=== PATIENT | male | born 1940 | race Caucasian/White ===

== ENCOUNTER 2018-08-22 10:35 | Outpatient (CLI) | payer MEDICARE, BC ==
[~2018-08-22 10:35] MED LIST: Iopamidol 370 76% 100 ML VIAL ONE
--- NOTE | 2018-08-22 15:11 | CT ---
PRE AND POST CONTRAST ENHANCED CT IMAGES ABDOMEN AND PELVIS: HISTORY: Gross hematuria 3 weeks. FINDINGS: Pre- and postcontrast-enhanced CT images of the abdomen and pelvis demonstrate no evidence of free in traperitoneal air. No evidence of abnormality is seen in the lung bases. No evidence of renal calculi seen. No evidence of hydroureteral nephrosis is seen. No evidence of renal parenchymal masses or lesions noted. The liver, spleen, gallbladder, pancreas, and adrenal glands are unremarkable. No dilated loops of b owel seen. Extensive colonic diverticulosis is present. The patient has an enlarged prostate gland which compresses the inferior aspect of the urinary bladde r as well as the posterior aspect. There may be extension of a prostate mass into the urinary bladde r or simply external deformity. Correlate with direct visualization. Multilevel lumbar changes of spondylosis seen. IMPRESSION: Enlarged prostate gland. POS: [facility]
== END 2018-08-22 10:36 | disposition home or self-care (01) ==
LOC: BICCT 10:35
PROVIDERS: ATTEND Urology
DX: R31.9 Hematuria, unspecified (principal); N40.0 Benign prostatic hyperplasia without lower urinary tract symptoms
CPT/HCPCS: 74178; 82565; Q9967